=== PATIENT | male | born 1995 | race American Indian/Alaskan Native ===

== ENCOUNTER 2019-05-10 10:43 | Emergency (ER) | payer OTHER ==
--- NOTE | 2019-05-10 10:47 | Event Note ---
ED Screening Note ED Screening Note: ankle pain l after injuring playing bball yesterday n/v intact This initial assessment/diagnostic orders/clinical plan/treatment(s) is/are subject to change based on patients health status, clinical progression and re- assessment by fellow clinical providers in the ED. Further treatment and workup at subsequent clinical providers discretion. Patient/guardian urged not to elope from the ED as their condition may be serious if not clinically assessed and managed. Initial orders include:
[2019-05-10 10:53] VITALS: BP 156/83
--- NOTE | 2019-05-10 11:19 | XRay Report ---
LEFT ANKLE, 3 views: History: left ankle pain. Bone mineralization is normal. No acute osseous abnormality or joint pathology is identified. The soft tissues are unremarkable. IMPRESSION: Left ankle within normal limits.
--- NOTE | 2019-05-10 11:44 | Emergency Department Report ---
ED Extremity Problem HPI - General Chief complaint: Extremity Injury, Lower Stated complaint: LT ANKLE INJURY Time Seen by Provider: 05/10/19 10:45 Source: patient Mode of arrival: Ambulatory Limitations: No Limitations - History of Present Illness Initial comments: Pt is a 24 yo male who presents to the ED with c/o left ankle pain that began yesterday. He states he was playing basketball and jumped up to get the ball and when he came down he inverted the left ankle. he denies any numbness or weakness. he denies any pain in the foot or toes. he has never injured this ankle previously. he denies any PMHx or allergies to meds. Pt has been ambulatory since the incident. - Related Data Previous Rx's Medication Instructions Recorded Last Taken Type Ibuprofen [Motrin 800 MG tab] 800 mg PO Q8HR PRN #14 tablet 05/10/19 Unknown Rx Allergies Allergy/AdvReac Type Severity Reaction Status Date / Time No Known Allergies Allergy Unverified 05/10/19 10:51 ED Review of Systems ROS: Stated complaint: LT ANKLE INJURY Other details as noted in HPI Comment: All other systems reviewed and negative ED Past Medical Hx - Past Medical History Previous Medical History?: No - Surgical History Past Surgical History?: No - Social History Smoking Status: Never Smoker Substance Use Type: None - Medications Home Medications: Home Medications Medication Instructions Recorded Confirmed Last Taken Type Ibuprofen [Motrin 800 MG tab] 800 mg PO Q8HR PRN #14 tablet 05/10/19 Unknown Rx ED Physical Exam - General Limitations: No Limitations General appearance: alert, in no apparent distress - Head Head exam: Present: atraumatic, normocephalic - Eye Eye exam: Present: normal appearance, PERRL - ENT ENT exam: Present: mucous membranes moist - Extremities Exam Extremities exam: Present: other (no bony TTP of the right ankle, FROM of the right ankle, mild discomfort upon flexion and internal rotation, trace amount of edema, no deformity, no obvious joint laxity, 2+ distal pulses, sensation intact, no ecchymosis) - Neurological Exam Neurological exam: Present: alert, oriented X3 - Psychiatric Psychiatric exam: Present: normal affect, normal mood - Skin Skin exam: Present: warm, dry, intact ED Course Vital Signs 05/10/19 10:51 Temperature 98.4 F Pulse Rate 64 Respiratory 18 Rate Blood Pressure 156/83 O2 Sat by Pulse 96 Oximetry ED Medical Decision Making - Radiology Data Radiology results: report reviewed XR left ankle no acute process - Medical Decision Making Pt is a 24 yo male who presents to the ED with c/o left ankle pain that began yesterday. He states he was playing basketball and jumped up to get the ball and when he came down he inverted the left ankle. he denies any numbness or weakness. he denies any pain in the foot or toes. he has never injured this ankle previously. he denies any PMHx or allergies to meds. Pt has been ambulatory since the incident. XR left ankle no acute process. on exam: no bony TTP of the right ankle, FROM of the right ankle, mild discomfort upon flexion and internal rotation, trace amount of edema, no deformity, no obvious joint laxity, 2+ distal pulses, sensation intact, no ecchymosis. Patient placed in an ankle splint. Patient given anti-inflammatories. Advised patient to please follow up with Dr. Lincoln, orthopedic in the next 2-3 days. use medication as prescribed as needed. may use ice, elevation, rest. return to the emergency room for any new or worsening symptoms. Advised patient to - Differential Diagnosis fracture, sprain, strain, dislocation Critical care attestation.: If time is entered above; I have spent that time in minutes in the direct care of this critically ill patient, excluding procedure time. ED Disposition Clinical Impression: Left ankle pain Qualifiers: Chronicity: acute Qualified Code(s): M25.572 - Pain in left ankle and joints of left foot Disposition: - TO HOME OR SELFCARE Is pt being admited?: No Does the pt Need Aspirin: No Condition: Stable Instructions: Ankle Sprain (ED), Ankle Stirrup Splint (ED) Additional Instructions: please follow up with Dr. Lincoln, orthopedic in the next 2-3 days. use medication as prescribed as needed. may use ice, elevation, rest. return to the emergency room for any new or worsening symptoms. Prescriptions: Ibuprofen [Motrin 800 MG tab] 800 mg PO Q8HR PRN #14 tablet PRN Reason: Pain, Moderate (4-6) [facility] [Primary Care Provider] - 2-3 Days DEMETRIA LINCOLN MD [Staff Physician] - 2-3 Days Forms: Work/School Release Form(ED) Time of Disposition: 11:44 Print Language: ROMANIAN
== END 2019-05-10 12:04 | disposition home or self-care (01) ==
LOC: ED 10:43
DX: M25.572 Pain in left ankle and joints of left foot (principal); X50.9XXA Other and unspecified overexertion or strenuous movements or postures, initial encounter; Y93.67 Activity, basketball; Y92.310 Basketball court as the place of occurrence of the external cause; Y99.8 Other external cause status